=== PATIENT | female | born 1970 | race Caucasian/White ===

== ENCOUNTER → 2018-04-27 | Outpatient (CLI) | payer OTHER ==
[~2018-04-27] MED LIST: HYDACE5325 PO; Percocet 5-3251 EACH PO; RXHYD5325 PO
== END | disposition home or self-care (01) ==
LOC: LAB SHORT 12:11 → LAB 12:11
DX: N89.8 Other specified noninflammatory disorders of vagina (principal)
CPT/HCPCS: 87070; 87205

== ENCOUNTER → 2018-04-27 | Outpatient (CLI) | payer OTHER ==
[2018-05-03 21:06] LABS: HPV 16 Negative (Negative); HPV 18 Negative (Negative); HPV OTHER HR TYPES Negative (Negative)
== END | disposition home or self-care (01) ==
LOC: LAB 13:31 → LAB SHORT 13:31
PROVIDERS: Nurse Practitioner Women's Health
DX: Z12.4 Encounter for screening for malignant neoplasm of cervix (principal); Z91.89 Other specified personal risk factors, not elsewhere classified
CPT/HCPCS: 87624; G0123

== ENCOUNTER 2018-06-12 12:40 | Day surgery (SDC) | payer OTHER ==
[~2018-06-12 12:40] MED LIST changes: +B Complex #11 EACH PO; +HYDR1TAB94 PO; +LORA1 PO; +Vitamin D2000 UNIT PO
--- NOTE | 2018-06-12 14:29 | NUR ---
06/12/18 1429 Natasha Arnold DC'D IN OR AT END OF CASE
--- NOTE | 2018-06-12 15:57 | NUR ---
06/12/18 1557 Krystal Toure UPON TRANSFER INTO RECLINER IN SDU. PT C/O 12/04 PAIN IN HER ABDOMEN AND DESCRIBES IT CRAMPING. PT MEDICATED WITH IV FENTANYL PER ORDERS AND CURRENTLY RATES PAIN 10/03. PT MEDICATED FOR NAUSEA AND HAS BEEN RESOLVED PER PT. NO EMESIS AT THIS TIME. WARM BLANKET APPLIED TO PTS ABDOMEN. PT TOLERATING PO FLUIDS. PTS AND MOTHER AT BEDSIDE. PT CONVERSATING WITH FAMILY. PT HAD SCANT BLOOD IN PAD UPON TRANSFER INTO RECLINER.
== END 2018-06-12 16:51 | disposition home or self-care (01) ==
LOC: ORSCSDS 12:40
PROVIDERS: Obstetrics & Gynecology Gynecology
PROC: 0UB98ZX Excision of Uterus, Via Natural or Artificial Opening Endoscopic, Diagnostic (ICD-10-PCS; principal; 2018-06-12 14:00)
PROC: 0UDB8ZX Extraction of Endometrium, Via Natural or Artificial Opening Endoscopic, Diagnostic (ICD-10-PCS; principal; 2018-06-12 14:00)
DX: N92.0 Excessive and frequent menstruation with regular cycle (principal); C54.1 Malignant neoplasm of endometrium; N94.12 Deep dyspareunia; R10.2 Pelvic and perineal pain
CPT/HCPCS: 88305; J0690; J1100; J1885; J2250; J2405; J2765; J3010; J7120

== ENCOUNTER 2020-09-29 08:30 | Day surgery (SDC) | payer OTHER ==
[~2020-09-29] VITALS: Ht 162.6 cm; Wt 123.9 kg
[~2020-09-29 08:30] MED LIST changes: +ALBU90OI INH; +ALPR1 PO; +CITA20 PO; +CYCL10 PO; +EPIPEN0.3 MG/0.3 IM; +GLUCOPHAGE1000 M1 PO; +IBUP200 PO; +METF500 PO; +PREG75 PO; +ZOLP10 PO; +Zovirax400 MG
== END 2020-09-29 10:36 | disposition home or self-care (01) ==
LOC: ORSCSDS 08:30
PROVIDERS: Surgery
PROC: 0DBK8ZX Excision of Ascending Colon, Via Natural or Artificial Opening Endoscopic, Diagnostic (ICD-10-PCS; principal; 2020-09-29 10:00)
DX: K62.5 Hemorrhage of anus and rectum (principal); D12.2 Benign neoplasm of ascending colon; E11.9 Type 2 diabetes mellitus without complications; Z86.718 Personal history of other venous thrombosis and embolism; F41.9 Anxiety disorder, unspecified; J45.909 Unspecified asthma, uncomplicated; E66.01 Morbid (severe) obesity due to excess calories; Z68.42 Body mass index [BMI] 45.0-49.9, adult; Z79.84 Long term (current) use of oral hypoglycemic drugs; Z79.899 Other long term (current) drug therapy
CPT/HCPCS: 82947; 88305; J2704

== ENCOUNTER 2020-10-20 12:39 | Observation (INO) | payer OTHER ==
[~2020-10-20] VITALS: Ht 162.6 cm; Wt 120.0 kg
[2020-10-20 14:20] LABS: BASOPHILS ABSOLUTE AUTO 0.01 K/mm3 (0.00-0.23); BASOPHILS PERCENT AUTO 0 % (0-2); EOSINOPHILS PERCENT AUTO 0 % (0-6); Hematocrit 45.2 % (33.0-51.0); Hemoglobin 14.5 g/dL (11.5-16.0); IMMATURE GRAN ABSOLUTE AUTO 0.01 K/mm3 (0.00-0.10); IMMATURE GRAN PERCENT AUTO 0 % (0-1); LYMPHOCYTES PERCENT AUTO 12 % (21-46); MONOCYTES ABSOLUTE AUTO 0.24 K/mm3 (0.16-1.47); MONOCYTES PERCENT AUTO 5 % (4-13); Mean Corpuscular HGB 27.6 pg (26.0-34.0); Mean Corpuscular HGB Conc 32.1 g/dL (31.5-36.5); Mean Corpuscular Volume 86 fL (80-100); Mean Platelet Volume 12.6 fL (9.1-12.4); NEUTROPHILS ABSOLUTE AUTO 4.24 K/mm3 (1.96-9.15); NEUTROPHILS PERCENT AUTO 83 % (41-73); Platelet Count 208 K/mm3 (150-400); RDW Coefficient Variation 14.3 % (11.7-14.2); RDW Standard Deviation 45.4 fL (35.1-46.3); Red Blood Cell Count 5.26 M/mm3 (3.80-5.20)
[2020-10-20] MEDS ORDERED: ASPI325EC PO (14:58)
[2020-10-20] MEDS ORDERED: ASCO500 PO (14:58)
[2020-10-20 14:59] LABS: Alanine Aminotransfer (ALT/SGP 59 U/L (12-78); Albumin/Globulin Ratio 0.7 (0.8-1.8); Alk Phos 111 U/L (50-136); Anion Gap 8 mmol/L (6-16); Aspartate Aminotrans (AST/SGOT 37 U/L (12-37); Bilirubin, Total 0.5 mg/dL (0.1-1.0); Blood Urea Nitrogen 16 mg/dL (8-24); Bun/Creatinine Ratio 20.2 (12.0-20.0); CO2, Blood 25 mmol/L (21-32); Calcium, Blood 8.3 mg/dL (8.5-10.1); Chloride, Blood 102 mmol/L (98-108); Creatinine, Blood 0.79 mg/dL (0.40-1.00); Globulin, Blood 4.5 g/dL (2.2-4.0); Glomerular Filtration Rate >60 (60-); Glucose, Blood 320 mg/dL (70-99); Potassium, Blood 4.5 mmol/L (3.5-5.5); Sodium, Blood 135 mmol/L (136-145); Total Protein, Blood 7.5 g/dL (6.4-8.2); Troponin I <0.015 ng/mL (0.000-0.040)
[2020-10-20] MEDS ORDERED: ZINC15 PO (14:59)
[2020-10-20] MEDS ORDERED: VITAMIN D31000 UNI1 PO (14:59)
[2020-10-20] MEDS ORDERED: LORA10ER PO (16:08)
[2020-10-20] MEDS ORDERED: Hair, Skin & N1 EACH PO (16:19)
[2020-10-20] MEDS ORDERED: ACYC400 PO (16:24)
--- NOTE | 2020-10-20 16:51 | NUR ---
RECIEVED REPORT FROM RAZA HENRY RN, @ 2576. PATIENT TO TRANSFER TO ROOM 335.
--- NOTE | 2020-10-20 18:36 | NUR ---
PATIENT ARRIVED TO ROOM 335 AT 1715 AND TRANSFERED SELF FROM W/C TO HOSPITAL BED. ADMISSION ASSESSMENT, H&P AND MED REC COMPLETED WITH THE ASSISTANCE OF THE PATIENT. O2 VIA NC ON PATIENT FOR DYSPNIC EPSODES WITH EXERSION. PATIENT IS INDEPENDENT IN ROOM. CALL LIGHT WITHIN REACH.
--- NOTE | 2020-10-21 03:32 | NUR ---
CLASSROOM COORDINATOR SUMMARY DROPLET PRECAUTIONS CONTINUE, LUNG SOUNDS DIMINISHED PER AUSCUTATION. ALERT AND ORIENTD. VOICED AT HS SHE COULDNT SLEEP, REQUESTED AND RECEIVED AMBIEN. MED EFFECTIVE, HAS BEEN RESTING QUIETLY WITH FEW INTRRUPTIONS SINCE. CALL LIGHT IN REACH
[2020-10-21 05:54] LABS: BASOPHILS ABSOLUTE AUTO 0.01 K/mm3 (0.00-0.23); BASOPHILS PERCENT AUTO 0 % (0-2); EOSINOPHILS PERCENT AUTO 0 % (0-6); Hematocrit 44.1 % (33.0-51.0); Hemoglobin 14.2 g/dL (11.5-16.0); IMMATURE GRAN ABSOLUTE AUTO 0.02 K/mm3 (0.00-0.10); IMMATURE GRAN PERCENT AUTO 1 % (0-1); LYMPHOCYTES ABSOLUTE AUTO 1.13 K/mm3 (0.84-5.20); LYMPHOCYTES PERCENT AUTO 31 % (21-46); MONOCYTES ABSOLUTE AUTO 0.39 K/mm3 (0.16-1.47); MONOCYTES PERCENT AUTO 11 % (4-13); Mean Corpuscular HGB 28.2 pg (26.0-34.0); Mean Corpuscular HGB Conc 32.2 g/dL (31.5-36.5); Mean Corpuscular Volume 88 fL (80-100); Mean Platelet Volume 11.6 fL (9.1-12.4); NEUTROPHILS ABSOLUTE AUTO 2.08 K/mm3 (1.96-9.15); NEUTROPHILS PERCENT AUTO 57 % (41-73); Platelet Count 188 K/mm3 (150-400); RDW Coefficient Variation 14.3 % (11.7-14.2); RDW Standard Deviation 46.2 fL (35.1-46.3); Red Blood Cell Count 5.04 M/mm3 (3.80-5.20); White Blood Cell Count 3.63 K/mm3 (4.00-11.30)
[2020-10-21 06:16] LABS: Alanine Aminotransfer (ALT/SGP 46 U/L (12-78); Albumin, Blood 2.8 g/dL (3.4-5.0); Albumin/Globulin Ratio 0.7 (0.8-1.8); Alk Phos 101 U/L (50-136); Anion Gap 6 mmol/L (6-16); Aspartate Aminotrans (AST/SGOT 19 U/L (12-37); Bilirubin, Total 0.3 mg/dL (0.1-1.0); Blood Urea Nitrogen 16 mg/dL (8-24); Bun/Creatinine Ratio 23.8 (12.0-20.0); CO2, Blood 27 mmol/L (21-32); Calcium, Blood 8.3 mg/dL (8.5-10.1); Chloride, Blood 104 mmol/L (98-108); Creatinine, Blood 0.67 mg/dL (0.40-1.00); Globulin, Blood 4.2 g/dL (2.2-4.0); Glomerular Filtration Rate >60 (60-); Glucose, Blood 242 mg/dL (70-99); Magnesium, Blood 2.1 mg/dL (1.6-2.4); Sodium, Blood 137 mmol/L (136-145)
--- NOTE | 2020-10-21 18:03 | NUR ---
PATIENT CONTINUES TO FEEL AWEFUL. SHE HAD A FEVER OF 102.5 THIS MORNING AND BECAME NAUSEATED. PO APAP AND IV ZOFRAN GIVEN AND BOTH EFFECTIVE BUT PATIENT CONTINUES TO FEEL HORRIBLE, MOSTLY AT THE "BASES OF LUNGS". SHE STATES THE BASES OF HER LUNGS FEEL TIGHT AND HURT. SHE RECIEVED HER SECOND DOSE OF IV RENDESMIVIR TODAY WITHOUT S/SX OF ADVERSE REACTIONS NOTED OR REPORTED. PATIENT HAS BEEN WITHOUT OXYGEN SINCE THE START OF THIS SHIFT AND SEEMS TO BE MAINTAINING HER O2 SATS ALTHOUGH SHE DOES SAY THAT SHE BECOMES DYSPNIC WITH MINIMAL EXERTION. PATIENT RESTS IN BED MUCH POSSIBLE. CALL LIGHT WITHIN REACH.
--- NOTE | 2020-10-22 05:24 | NUR ---
SHIFT SUMMARY ADMITTED FOR COVID+. FULL CODE. DROPLET/CONTACT FOR COVID+. REMDESIVIR IS SCHEDULED. PLAN IS FOR DC HOME 1-2 DAYS AND HOME O2 EVAL. SHE IS DYSPNEIC W/EXERTION. I DID CALL THE RESIDENT AT THE PT'S REQUEST REGARDING HER WORSENING COUGH. NEW ORDERS IN EMAR. SHE IS A&O X4, INDEPENDENT IN ROOM. I ALSO CALLED THE RESIDENT RE: [facility]WARD TRENDING BLOOD GLUCOSE LABS, NEW ORDERS WERE ENTERED. (SEE PREVIOUS NOTES)
[2020-10-22] MEDS ORDERED: Acetaminophen650 M1 PO (11:21)
[2020-10-22] MEDS ORDERED: BENZ100A PO (11:22)
[2020-10-22] MEDS ORDERED: DECADRON6 M1 PO (11:23)
[2020-10-22] MEDS ORDERED: GUAI600T33 PO (11:24)
[2020-10-22] MEDS ORDERED: IMODIUM A-D2 M1 PO (11:25)
[2020-10-22] MEDS ORDERED: INSULANPEN SC (11:25)
[2020-10-22] MEDS ORDERED: ZINC220 PO (11:26)
[2020-10-22] MEDS ORDERED: ONDA4 PO (11:26)
[2020-10-22] MEDS ORDERED: ZOLP10 PO (11:27)
--- NOTE | 2020-10-22 14:02 | NUR ---
PT DISCHARGED AT 1340 NO DISTRESS NOTED. PT ESCORTED OUT VIA WHEEL CHAIR BY AID. ALL PAPERWORK REVIEWED AND EDUCATIONAL MATERIAL SENT. PT DOING WELL AND INDEPENDENT IN ROOM. STILL MINOR COUGH, BUT ABLE TO TO GET AROUND EASILY NEEDED. ALL PERSONAL BELONGINGS COLLECTED.
== END 2020-10-22 13:36 | disposition home or self-care (01) ==
LOC: ER 12:39 → MEDS 12:40 → ENPENDDIS 10-22 10:36 → MEDS 10-22 13:36
PROVIDERS: Nurse Practitioner Acute Care; Physician Assistant; ADMIT Family Medicine
DX: U07.1 COVID-19 (principal); J12.82 Pneumonia due to coronavirus disease 2019; E11.9 Type 2 diabetes mellitus without complications; E66.01 Morbid (severe) obesity due to excess calories; Z68.41 Body mass index [BMI] 40.0-44.9, adult; Z79.82 Long term (current) use of aspirin; Z79.84 Long term (current) use of oral hypoglycemic drugs; Z85.42 Personal history of malignant neoplasm of other parts of uterus; Z88.5 Allergy status to narcotic agent; Z88.8 Allergy status to other drugs, medicaments and biological substances; Z91.048 Other nonmedicinal substance allergy status; Z90.711 Acquired absence of uterus with remaining cervical stump
CPT/HCPCS: 36415; 71045; 80053; 82947; 83605; 83735; 84484; 85025; 87040; 93005; 93010; 94640; 94664; 94761; 94762; 96372; 96374; 96375; 96376; 99285-25; A9270; G0378; J1100; J1650; J2405; J7030; J7050

== ENCOUNTER → 2022-04-17 | Outpatient (CLI) | payer OTHER ==
[~2022-04-17] MED LIST changes: +ACYC400 PO; +ASCO500 PO; +ASPI325EC PO; +Acetaminophen650 M1 PO; +BENZ100A PO; +DECADRON6 M1 PO; +GUAI600T33 PO; +Hair, Skin & N1 EACH PO; +IMODIUM A-D2 M1 PO; +INSULANPEN SC; +LORA10ER PO; +ONDA4 PO; +VITAMIN D31000 UNI1 PO; +ZINC15 PO; +ZINC220 PO
[2022-04-20 13:11] LABS: C DIFFICILE DNA Duplicate (Negative)
[2022-04-20 14:14] LABS: Campylobacter Sp Not Detected (NOT DETECT); Plesiomonas Shigelloides Not Detected (NOT DETECT); Salmonella Sp Not Detected (NOT DETECT); Vibrio Cholerae Not Detected (NOT DETECT); Vibrio Sp Not Detected (NOT DETECT); Yersinia Enterocolitica Not Detected (NOT DETECT)
[2022-04-20 14:15] LABS: Adenovirus F 40/41 Not Detected (NOT DETECT); Astrovirus Not Detected (NOT DETECT); Cryptosporidium Not Detected (NOT DETECT); Cyclospora Cayetanensis Not Detected (NOT DETECT); E. Coli O157 Not Detected (NOT DETECT); Entamoeba Histolytica Not Detected (NOT DETECT); Enteroaggregative E. coli-EAEC Not Detected (NOT DETECT); Enteropathogenic E. coli-EPEC Not Detected (NOT DETECT); Enterotoxigenic E. coli-ETEC Not Detected (NOT DETECT); Giardia Lamblia Not Detected (NOT DETECT); Norovirus GI/GII Not Detected (NOT DETECT); Rotavirus A Not Detected (NOT DETECT); Sapovirus Not Detected (NOT DETECT); Shiga Toxin-prod E. coli-STEC Not Detected (NOT DETECT); Shigella/Enteroin E. coli-EIEC Not Detected (NOT DETECT)
== END | disposition home or self-care (01) ==
LOC: LAB 14:00 → LAB SHORT 14:00
PROVIDERS: Family Medicine
DX: R19.7 Diarrhea, unspecified (principal)
CPT/HCPCS: 87507

== ENCOUNTER → 2023-02-07 | Outpatient (CLI) | payer OTHER ==
[2023-02-08 12:14] LABS: Candida species (DNA Probe) Negative (NEGATIVE); G. vaginalis (DNA Probe) Negative (NEGATIVE); T. vaginalis (DNA Probe) Negative (NEGATIVE)
== END ==
LOC: LAB SHORT 17:30 → LAB 17:30
PROVIDERS: Family Medicine
DX: N76.0 Acute vaginitis (principal)
CPT/HCPCS: 87480; 87510; 87660

== ENCOUNTER → 2023-12-13 | Outpatient (CLI) | payer OTHER ==
[2023-12-14 18:23] LABS: BASOPHILS ABSOLUTE AUTO 0.03 K/mm3 (0.00-0.23); BASOPHILS PERCENT AUTO 0 % (0-2); EOSINOPHILS ABSOLUTE AUTO 0.18 K/mm3 (0.00-0.68); EOSINOPHILS PERCENT AUTO 3 % (0-6); Hemoglobin 13.6 g/dL (11.5-16.0); IMMATURE GRAN ABSOLUTE AUTO 0.01 K/mm3 (0.00-0.10); IMMATURE GRAN PERCENT AUTO 0 % (0-1); LYMPHOCYTES ABSOLUTE AUTO 1.87 K/mm3 (0.84-5.20); LYMPHOCYTES PERCENT AUTO 28 % (21-46); MONOCYTES ABSOLUTE AUTO 0.79 K/mm3 (0.16-1.47); MONOCYTES PERCENT AUTO 12 % (4-13); Mean Corpuscular HGB 29.3 pg (26.0-34.0); Mean Corpuscular HGB Conc 32.4 g/dL (31.5-36.5); Mean Corpuscular Volume 91 fL (80-100); Mean Platelet Volume 12.4 fL (9.1-12.4); NEUTROPHILS ABSOLUTE AUTO 3.84 K/mm3 (1.96-9.15); NEUTROPHILS PERCENT AUTO 57 % (41-73); Platelet Count 244 K/mm3 (150-400); RDW Coefficient Variation 13.6 % (11.7-14.2); RDW Standard Deviation 45.1 fL (35.1-46.3); Red Blood Cell Count 4.64 M/mm3 (3.80-5.20); White Blood Cell Count 6.72 K/mm3 (4.00-11.30)
[2023-12-14 21:04] LABS: Albumin, Blood 3.5 g/dL (3.4-5.0); Albumin/Globulin Ratio 1.1 (0.8-1.8); Bilirubin, Total 0.4 mg/dL (0.1-1.0); Bun/Creatinine Ratio 26.3 (12.0-20.0); Calcium, Blood 8.4 mg/dL (8.5-10.1); Creatinine, Blood 0.61 mg/dL (0.40-1.00); Globulin, Blood 3.2 g/dL (2.2-4.0); Total Protein, Blood 6.7 g/dL (6.4-8.2)
== END ==
LOC: LAB SHORT 17:20 → LAB 17:20
PROVIDERS: Nurse Practitioner Family
DX: Z00.00 Encounter for general adult medical examination without abnormal findings (principal)
CPT/HCPCS: 80053; 85025

== ENCOUNTER → 2023-12-28 | Outpatient (CLI) | payer OTHER | LOC: LAB 09:17 → LAB SHORT 09:17 | DX: R30.0 Dysuria (principal) | CPT/HCPCS: 87086 ==